=== PATIENT | female | born 1970 | race Caucasian/White ===

== ENCOUNTER 2017-05-19 18:34 | Emergency (ER) | payer MEDICARE, MEDICAID ==
[~2017-05-19] VITALS: Ht 157.5 cm; Wt 85.7 kg
[~2017-05-19 18:34] MED LIST: ACIPHEX 20 MG T20 MG PO; ALDOMET250 MG PO; ALPRAZOLAM; AMOXICILLIN 50500 M1 PO; BENTYL20 MG PO; CARAFATE 1 GM TA1 G1 PO; CARAFATE 1 GM TA1 GM PO; DURAGESIC1 EAC2; DYAZIDE 37.5-21 EACH PO; HYDROCHLOROTHIA25 M1 PO; IBUPROFEN 800800 M1 PO; LEVAQUIN 500 M500 M4 PO; LYRICA; METFORMIN HCL500 MG PO; METHYLDOPA; MS CONTIN15 MG PO; NEXIUM40 MG PO; PERCOCET 5-3251 EACH PO; PERCOGESIC; PHENERGAN 25 MG25 M1 PO; PHENERGAN25 M2 RC; PREDNISONE 10 M10 M1 PO; PRENATAL; PREVACID15 MG PO; PROMS25 WY RECTAL; PROTONIX40 MG PO; TOBRAMYCIN SULFA5 M1 OPHTHALMIC; TOPAMAX PO; TORADOL 10 MG T10 MG PO; ULTRAM 50MG TAB50 MG PO; VALTREX1000 MG PO; VENTOLIN HFA INH8 GM INH; XANAX 0.25 MG0.25 MG PO; ZANTAC 150MG T150 M1 PO; ZOFRAN 4 MG ORAL4 M1 DIS; ZOLOFT; ZOLOFT 50 MG TA50 M1
[2017-05-19] MEDS ORDERED: LEVOTHYROXINE100 MC1 (18:45)
[2017-05-19 19:18] LABS: INFLUENZA A ANTIGEN None Detected (None Detect); INFLUENZA B ANTIGEN None Detected (None Detect)
[2017-05-19] MEDS ORDERED: DOXYCYCLINE 10100 MG PO (19:24)
[2017-05-19] MEDS ORDERED: PREDNISONE 20 M20 MG PO (19:24)
[2017-05-19] MEDS ORDERED: TESSALON PERLE100 MG PO (19:24)
[2017-05-19] MEDS ORDERED: VENTOLIN HFA 1818 GM INH (19:24)
[2017-05-19 19:34] VITALS: BP 136/43
== END 2017-05-19 19:36 | disposition home or self-care (01) ==
LOC: M.ERS 18:34
PROVIDERS: Physician Assistant
DX: J06.9 Acute upper respiratory infection, unspecified (principal); K21.9 Gastro-esophageal reflux disease without esophagitis; I10 Essential (primary) hypertension; E11.9 Type 2 diabetes mellitus without complications; J44.9 Chronic obstructive pulmonary disease, unspecified; F17.210 Nicotine dependence, cigarettes, uncomplicated; F10.99 Alcohol use, unspecified with unspecified alcohol-induced disorder; Z88.8 Allergy status to other drugs, medicaments and biological substances; Z88.5 Allergy status to narcotic agent; Z98.890 Other specified postprocedural states; Z90.49 Acquired absence of other specified parts of digestive tract

== ENCOUNTER 2017-08-23 12:10 | Emergency (ER) | payer MEDICARE, MEDICAID ==
[~2017-08-23] VITALS: Ht 157.5 cm; Wt 86.2 kg
[~2017-08-23 12:10] MED LIST changes: +DOXYCYCLINE 10100 MG PO; +LEVOTHYROXINE100 MC1; +PREDNISONE 20 M20 MG PO; +TESSALON PERLE100 MG PO; +VENTOLIN HFA 1818 GM INH
[2017-08-23] MEDS ORDERED: PHENERGAN 25 MG25 M1 PO (12:25)
[2017-08-23] MEDS ORDERED: PROTONIX 20 MG20 M1 PO (12:25)
[2017-08-23] MEDS ORDERED: PROAIR HFA8.5 GM (12:25)
[2017-08-23] MEDS ORDERED: CARAFATE 1 GM TA1 G1 PO (12:26)
[2017-08-23 13:30] LABS: ABSOLUTE BASOPHILS 0.1 thou/uL (0.0-0.2); ABSOLUTE EOSINOPHILS 0.2 thou/uL (0.0-0.7); ABSOLUTE LYMPHOCYTES 2.6 thou/uL (0.8-5.3); ABSOLUTE NEUTROPHILS 6.3 thou/uL (1.6-8.1); BASOPHILS 0.6 %; EOSINOPHILS 2.3 %; HEMOGLOBIN 16.3 gm/dL (12.0-15.0); LYMPHOCYTES 25.2 %; MCH 30.9 pg (26.0-34.0); MCHC 34.6 g/dL (28.0-37.0); MCV 89.2 fL (80.0-100.0); MONOCYTES 9.9 %; NUCLEATED RBCS 0 /100WBC; PLATELET COUNT* 247 thou/uL (150-400); RBC 5.27 mil/uL (4.20-5.00); RDW-CV 14.1 % (10.5-14.5); WBC 10.1 thou/uL (4.0-11.0)
[2017-08-23 13:38] LABS: URINE BILIRUBIN NEGATIVE (Negative); URINE BLOOD TRACE (Negative); URINE CLARITY CLEAR; URINE COLOR YELLOW; URINE GLUCOSE-RANDOM NEGATIVE (Negative); URINE KETONES NEGATIVE (Negative); URINE LEUKOCYTES-REFLEX NEGATIVE (Negative); URINE NITRITE-REFLEX NEGATIVE (Negative); URINE PROTEIN NEGATIVE (Negative); URINE SPECIFIC GRAVITY 1.015 (1.005-1.030); URINE UROBILINOGEN 0.2 E.U./dl (0.2-1.0)
[2017-08-23 13:38] LABS: CALCIUM 8.8 mg/dL (8.5-10.1); CREATININE 0.9 mg/dL (0.6-1.3); POTASSIUM 3.8 mmol/L (3.5-5.1)
[2017-08-23 13:43] LABS: ALBUMIN 3.7 g/dL (3.4-5.0); TOTAL BILIRUBIN 0.3 mg/dL (<0.1-1.0); TOTAL PROTEIN 7.5 g/dL (6.4-8.2)
[2017-08-23] MEDS ORDERED: PROMS25 WY RECTAL (13:53)
[2017-08-23 16:27] VITALS: BP 174/89
--- NOTE | 2017-08-24 11:30 | EKG ---
[place] [address] ELECTROCARDIOGRAM REPORT Name: PATRICK RHODES Room: [facility]#: [id number] Admission: 08/23/17 Attend Phys: Discharge: 08/23/17 Date of : 66 Report #: [id number] THIS REPORT FOR: //name// [facility] ED Test Date: 2017-08-23 Test Time: 14:46:06 Pat Name: PATRICK RHODES Department: Room: Gender: F Injury Prevention Coordinator: Jose Maria CHANDLER : 1970 Requested By: Carolyn Carl Order Number: [id number] MD: James Fairchild Measurements Intervals [place] Rate: 76 P: 35 [place]: 145 QRS: 2 QRSD: 85 T: 0 QT: 412 QTc: 464 Interpretive Statements Sinus rhythm Borderline T abnormalities, inferior leads Compared to ECG 08/15/2014 12:35:04 T-wave abnormality now present Electronically Signed On 08-24-2017 11:30:35 CDT by James Fairchild [email or web address] <ELECTRONICALLY SIGNED> By: James Fairchild MD, [facility] 08/24/17 1130 1446 1446 James Fairchild MD, FAC /EPI
== END 2017-08-23 16:27 | disposition home or self-care (01) ==
LOC: M.ERS 12:10
PROVIDERS: Nurse Practitioner Family
DX: R10.11 Right upper quadrant pain (principal); E11.9 Type 2 diabetes mellitus without complications; K21.9 Gastro-esophageal reflux disease without esophagitis; Z90.49 Acquired absence of other specified parts of digestive tract; F17.210 Nicotine dependence, cigarettes, uncomplicated; Z88.5 Allergy status to narcotic agent; Z88.6 Allergy status to analgesic agent; Z88.8 Allergy status to other drugs, medicaments and biological substances; J44.9 Chronic obstructive pulmonary disease, unspecified

== ENCOUNTER 2017-10-11 11:46 | Inpatient (IN) | payer MEDICARE, MEDICAID ==
[~2017-10-11] VITALS: Ht 157.5 cm; Wt 87.5 kg
[~2017-10-11 11:46] MED LIST changes: +PROAIR HFA8.5 GM; +PROTONIX 20 MG20 M1 PO
[2017-10-11 12:22] LABS: ABSOLUTE BASOPHILS 0.1 thou/uL (0.0-0.2); ABSOLUTE EOSINOPHILS 0.1 thou/uL (0.0-0.7); ABSOLUTE LYMPHOCYTES 1.2 thou/uL (0.8-5.3); ABSOLUTE MONOCYTES 0.5 thou/uL (0.0-1.2); ABSOLUTE NEUTROPHILS 4.3 thou/uL (1.6-8.1); BASOPHILS 0.8 %; EOSINOPHILS 1.1 %; HEMATOCRIT 40.2 % (37.0-47.0); MCH 30.4 pg (26.0-34.0); MCHC 34.7 g/dL (28.0-37.0); MCV 87.6 fL (80.0-100.0); MPV 7.8 fl. (7.2-11.1); NUCLEATED RBCS 0 /100WBC; PLATELET COUNT* 226 thou/uL (150-400); POLYS 71.1 %; RBC 4.58 mil/uL (4.20-5.00); RDW-CV 13.9 % (10.5-14.5); WBC 6.1 thou/uL (4.0-11.0)
[2017-10-11 12:26] LABS: URINE BLOOD NEGATIVE (Negative); URINE CLARITY CLEAR; URINE COLOR YELLOW; URINE GLUCOSE-RANDOM NEGATIVE (Negative); URINE KETONES 1+ (Negative); URINE LEUKOCYTES-REFLEX NEGATIVE (Negative); URINE NITRITE-REFLEX NEGATIVE (Negative); URINE PROTEIN 1+ (Negative); URINE SPECIFIC GRAVITY 1.025 (1.005-1.030); URINE UROBILINOGEN 0.2 E.U./dl (0.2-1.0)
[2017-10-11 12:29] LABS: ICTOTEST (BILI CONFIRMATORY) Negative (Negative); URINE BILIRUBIN 1+ (Negative)
[2017-10-11 12:32] LABS: CALCIUM 8.4 mg/dL (8.5-10.1); CREATININE 0.8 mg/dL (0.6-1.3)
[2017-10-11 12:36] LABS: ALBUMIN 3.1 g/dL (3.4-5.0); TOTAL BILIRUBIN 0.4 mg/dL (<0.1-1.0); TOTAL PROTEIN 7.4 g/dL (6.4-8.2)
--- NOTE | 2017-10-11 15:18 | EKG ---
[place] [address] ELECTROCARDIOGRAM REPORT Name: PATRICK RHODES Room: [facility]#: [id number] Admission: 10/11/17 Attend Phys: Discharge: Date of : 66 Report #: [id number] THIS REPORT FOR: //name// [facility] ED Test Date: 2017-10-11 Test Time: 12:23:42 Pat Name: PATRICKADRIEN RHODES Department: Room: Gender: F Knot Tying Operator: : 1970 Requested By: Carolyn Carl Order Number: [id number] MD: Seun Quinones Measurements Intervals [place] Rate: 113 P: 38 [place]: 180 QRS: 9 QRSD: 79 T: 17 QT: 308 QTc: 423 Interpretive Statements Sinus tachycardia Probable left atrial enlargement Compared to ECG 08/23/2017 14:46:06 Sinus rhythm no longer present Electronically Signed On 10-11-2017 15:18:05 CDT by Seun Quinones [email or web address] <ELECTRONICALLY SIGNED> By: Seun Quinones MD, [facility] 10/11/17 1518 1223 1223 Seun Quinones MD, FACC /EPI
[2017-10-11 16:17] VITALS: BP 144/64
[2017-10-11 17:04] VITALS: BP 154/84
[2017-10-11] MEDS ORDERED: XANAX 0.25 MG0.25 MG PO (17:07)
[2017-10-11 20:20] VITALS: BP 111/62
[2017-10-12] VITALS: BP 157/93
[2017-10-12 04:23] VITALS: BP 117/74
[2017-10-12 04:49] LABS: HEMATOCRIT 37.7 % (37.0-47.0); HEMOGLOBIN 12.8 gm/dL (12.0-15.0); MCH 30.2 pg (26.0-34.0); MCHC 33.9 g/dL (28.0-37.0); MPV 8.4 fl. (7.2-11.1); RBC 4.23 mil/uL (4.20-5.00); RDW-CV 14.1 % (10.5-14.5); WBC 5.2 thou/uL (4.0-11.0)
[2017-10-12 05:05] LABS: ALBUMIN 2.8 g/dL (3.4-5.0); CALCIUM 8.1 mg/dL (8.5-10.1); CREATININE 0.7 mg/dL (0.6-1.3); MAGNESIUM 1.7 mg/dL (1.8-2.4); POTASSIUM 4.1 mmol/L (3.5-5.1); TOTAL BILIRUBIN 0.3 mg/dL (<0.1-1.0)
--- NOTE | 2017-10-12 06:19 | CON ---
[address] [address] CONSULTATION Name: PATRICK RHODES Room: [address] IN .R.#: [id number] Admission: 10/11/17 Attend Phys: Emely Armstrong MD Discharge: Date of : 66 Report #: [id number] THIS REPORT FOR: //name// CC: Seun Armstrong DATE OF SERVICE: 10/11/2017 INFECTIOUS DISEASE CONSULTATION ATTENDING PHYSICIAN: Dr. Armstrong. REASON FOR EVALUATION: FUO with associated nausea, vomiting and diarrhea with a painful maculopapular type eruption and it is widespread. HISTORY OF PRESENT ILLNESS: Chart reviewed, patient examined. This is a 47-year-old, with history of hypertension, bipolar disease, who had noted feeling lightheaded roughly 3 weeks ago. This was followed by fevers some of which have been as high as 104, but this has occurred basically daily for the last up to 2-3 weeks. More recently, has developed nausea, vomiting, diarrhea, had some poor p.o. intake and some weight loss. Subsequently, developed a macular eruption that started in the scalp, progressed and now involves the entirety of the torso as well as the limbs, and it is painful. On questioning, he denies any particular exposure history. It sounds that she is disabled, spends most of the time at home. There is no significant animal exposure, no recent travel. Does have a teenage son. Spouse has not been ill. No dietary indiscretion. Evaluation including laboratory thus far, CBC with a normal white count at 6.1, H and H 14.0 and 40.2 and platelets of 226. Differential was otherwise unremarkable. Urinalysis 1+ protein, negative nitrite, negative blood. Electrolytes: Sodium 137, potassium 4.0, chloride 100, bicarbonate is 26, AST is elevated at 81, ALT of 126. Lactic acid of 1.3. Monospot was negative. Chest x-ray, no acute process. CT abdomen and pelvis showed multiple small noncalcified pulmonary masses, question of some metastasis, no acute abdominal process, surgically absent gallbladder. Liver, a small low attenuation mass, 4 mm. Spleen was otherwise unremarkable. Small retroperitoneal lymph nodes. Of note, he did receive Augmentin as an outpatient seemingly without any significant benefit. She is not encephalopathic. Has some mild sore throat. No significant sinus issues. Does admit to some mild dyspnea, although not overtly distressed. ALLERGIES: LISTED TO OXYCODONE, PROPOXYPHENE, ESCITALOPRAM, MORPHINE, HYDROCODONE, ACETAMINOPHEN, FENTANYL, IRBESARTAN. MEDICATIONS: Currently include promethazine, metformin, levothyroxine, albuterol, promethazine, pantoprazole, sucralfate, Aldomet, [place] [address] CONSULTATION Name: PATRICK RHODES Room: [address] IN [facility].#: [id number] Admission: 10/11/17 Attend Phys: Emely Armstrong MD Discharge: Date of : 66 Report #: [id number] PAST MEDICAL HISTORY: Reflux, hypertension, diabetes mellitus type 2, COPD. SOCIAL HISTORY: Smoker. FAMILY HISTORY: Noncontributory. REVIEW OF SYSTEMS: As above. PHYSICAL EXAMINATION: GENERAL: She is actually alert, cooperative, in mild distress. She is sitting up. She is not overtly tachypneic. VITAL SIGNS: Temperature 101.5, pulse 125, respirations 18, blood pressure is not recorded. Weight 193 pounds. HEENT: She has several papular type eruptions on the head, neck, the limbs and the torso. They are not particularly hemorrhagic or vasculitic in appearance. They are tender. There are no bullous lesions. There are no subcutaneous masses or fluctuance. NECK: Supple. LUNGS: Somewhat diminished, otherwise generally clear breath sounds. HEART: Regular, tachycardic. I do not appreciate a murmur. ABDOMEN: Soft, mildly distended. There are no overt peritoneal signs. GENITOURINARY: Deferred. RECTAL: Deferred. LABORATORY DATA: Primarily as described above. LFTs remarkable for the AST of 81, ALT of 126, alkaline phosphatase of 183, albumin of 3.1, total protein of 7.4. Urine hCG was negative. Monospot was negative. ASSESSMENT: Fever of unknown origin with associated rash, mildly elevated liver function tests, and some perhaps new pulmonary nodules. Certainly, infection is a significant consideration. Blood cultures have been collected. We will do additional studies. At this point, it is reasonable to start empiric treatment with doxycycline, may need to consider additional studies such as skin biopsy. We may add additional testing pending those results. <ELECTRONICALLY SIGNED> By: Den Trejo MD 10/12/17 0619 1525 01Den Trejo MD /nt
[2017-10-12 10:38] VITALS: BP 133/65
[2017-10-12 16:17] LABS: APTT 29.2 Seconds (25.0-31.3)
--- NOTE | 2017-10-12 17:21 | 2DMMODE ---
[place] [address] 2 D/M-MODE ECHOCARDIOGRAM Name: PATRICK RHODES Room: [address] IN .R.#: [id number] Admission: 10/11/17 Attend Phys: Emely Armstrong, Discharge: Date of : 66 Date of Service: 10/12/17 1721 Report #: [id number] THIS REPORT FOR: //name// APPROVED REPORT Study performed: 10/12/2017 15:44:15 EXAM: Comprehensive 2D, Doppler, and color-flow Echocardiogram Patient Location: Bedside BSA: 1.88 HR: 103 bpm BP: 133/65 mmHg Other Information Study Quality: Fair Indications Pericardial Effusion Fever 2D Dimensions LVEF(%): 60.26 (>50%) IVSd: 9.62 (7-11mm) LVOT Diam: 22.66 (18-24mm) LVDd: 42.45 mm PWd: 9.52 (7-11mm) Ascending Ao: 27.55 (22-36mm) LVDs: 28.93 (25-40mm) Aortic Root: 25.01 mm Morris's LVEF: 60.26 % Volumes Left Atrial Volume (Systole) LA ESV Index: 14.80 mL/m2 Aortic Valve AoV Peak Pedro.: 1.38 m/s AO Peak Gr.: 7.63 mmHg LVOT Max P.42 mmHg AO Mean Gr.: 4.55 mmHg LVOT Mean P.18 mmHg LVOT Max V: 1.05 m/s AO V2 VTI: 19.94 cm LVOT Mean V: 0.68 m/s ISAC (VTI): 3.55 cm2 LVOT V1 VTI: 17.56 cm Mitral Valve E/A Ratio: 0.98 MV Decel. Time: 252.78 [place] [address] 2 D/M-MODE ECHOCARDIOGRAM Name: PATRICK RHODES Room: [address] IN .R.#: [id number] Admission: 10/11/17 Attend Phys: Emely Armstrong, Discharge: Date of : 66 Date of Service: 10/12/17 1721 Report #: [id number] MV E Max Pedro.: 0.64 m/s MV PHT: 73.31 ms MVA (PHT): 3.00 cm2 TDI E/Lateral E': 4.92 E/Medial E': 6.40 Medial E' Pedro.: 0.10 m/s Lateral E' Pedro.: 0.13 m/s Pulmonary Valve PV Peak Pedro.: 0.85 m/s PV Peak Gr.: 2.90 mmHg Tricuspid Valve RAP Estimate: 5.00 mmHg TR Peak Gr.: 21.12 mmHg RVSP: 26.12 mmHg PA Pressure: 26.12 mmHg Left Ventricle The left ventricle is normal size. There is normal LV segmental wall motion. There is normal left ventricular wall thickness. Left ventricular systolic function is normal. The left ventricular ejection fraction is within the normal range. LVEF is 60-65%. The left ventricular diastolic function is normal. Right Ventricle The right ventricle is normal size. The right ventricular systolic function is normal. Atria The left atrium size is normal. The right atrium size is normal. Aortic Valve The aortic valve is normal in structure. No aortic regurgitation is present. There is no aortic valvular stenosis. Mitral Valve The mitral valve is normal in structure. Trace mitral regurgitation. No evidence of mitral valve stenosis. Tricuspid Valve The tricuspid valve is normal in structure. Trace tricuspid regurgitation. estimated pa pressure 30 mm Hg Pulmonic Valve The pulmonary valve is normal in structure. [place] [address] 2 D/M-MODE ECHOCARDIOGRAM Name: PATRICK RHODES Room: [address]#: [id number] Admission: 10/11/17 Attend Phys: Emely Armstrong, Discharge: Date of : 66 Date of Service: 10/12/17 1721 Report #: [id number] valvular regurgitation. Great Vessels The aortic root is normal in size. IVC is normal in size and collapses with >50% inspiration Pericardium There is no pericardial effusion. <Conclusion> Left ventricular systolic function is normal. The left ventricular ejection fraction is within the normal range. <ELECTRONICALLY SIGNED> By: Seun Quinones MD, FACC 10/12/171720 20 20 Seun Quinones MD, FACC /INF
[2017-10-12 17:34] VITALS: BP 126/71
[2017-10-13 06:24] VITALS: BP 127/76
--- NOTE | 2017-10-13 07:16 | CON ---
[address] [address] CONSULTATION Name: PATRICK RHODES Room: [address] IN .R.#: [id number] Admission: 10/11/17 Attend Phys: Emely Armstrong MD Discharge: Date of : 66 Report #: [id number] THIS REPORT FOR: //name// CC: Seun Armstrong REQUESTING PHYSICIAN: Dr. Emely Armstrong. REASON FOR CONSULTATION: Pulmonary nodules. DISCUSSION: The patient is a pleasant 47-year-old woman, former smoker, quitting 2 years ago. She has no history of underlying lung disease. She was admitted after presenting to the Emergency Department yesterday with persistent high fevers, rash, nausea, vomiting and severe diarrhea. Was seen in the ED. No acute distress. Had generalized rash noted. Initial chest x-ray was unremarkable. With her GI symptoms, she did have a CT scan done of her abdomen and pelvis. No acute findings were noted in the abdomen. However, she did have multiple small noncalcified nodules noted. These were new compared to CT abdomen done in late July. At that time, she was evaluated in the Emergency Department for complaints of abdominal pain. She has had fevers overnight here. She has been on room air. Minimal cough, no sputum production. She has not felt short of breath. As noted, she is a former smoker. [place] Do have an indoor dog. Cats outside, but no farm animals. She has not had any travel. Not aware of any tick bites. She has not had any cuts or injuries. She notes she typically does not get out that she is "home body." Her smokes, but occasionally does smoke in the house. They have done no remodeling. Not been any big disruption of soil around their home. With her fevers, her physician did have her take a round of Augmentin. That did not help. Apparently, has also had other ED visits elsewhere besides [facility]. PAST MEDICAL HISTORY: Remarkable for chronic diarrhea, which she has had for years. History of hypertension, diabetes mellitus type 2, degenerative joint disease with 2 cervical fusions done in the past as well, sleep apnea for which she is on CPAP, prior cholecystectomy, appendectomy. She has had 4 C-sections. One of them was because of a uterine rupture during labor with an associated bladder injury. HOME MEDICATIONS: Have been hydrochlorothiazide, alprazolam, Carafate, Protonix, p.r.n. Phenergan, levothyroxine, p.r.n. ProAir inhaler, metformin [place] [address] CONSULTATION Name: PATRICK RHODES Room: [address] IN M.R.#: [id number] Admission: 10/11/17 Attend Phys: Emely Armstrong MD Discharge: Date of : 66 Report #: [id number] SOCIAL HISTORY: Former smoker. Is . Has 4 kids, only 1 left at home, is 10 years old. Is disabled. FAMILY HISTORY: Positive for COPD. REVIEW OF SYSTEMS: A 12-point ROS was done. Note positives above. She believes she may have lost some weight, though it is not clear how much. She does not believe that girth of her abdomen changed at all and still feels "full." She notes she has had chronic diarrhea for years. However, they are much worse over the last 3 weeks. Describes it as "water." She has been vomiting daily. Poor appetite. Has been nauseated. Had the skin eruptions noted. It has not been very pruritic but has had painful lesions. No upper airway congestion. Minimal cough, no sputum production. PHYSICAL EXAMINATION: GENERAL APPEARANCE: A woman who looks stated age. She is obese, resting in bed. No acute distress. She was beginning to get diaphoretic while I was there. HEENT: Head is normocephalic. Sclerae nonicteric. Mucous membranes look moist. NECK: No cervical or supraclavicular adenopathy is appreciated. HEART: Regular, though mildly tachycardic. No murmurs heard. LUNGS: Sounds are clear with good air exchange. No wheezing or crackles are heard. Excursion is equal. ABDOMEN: Obese but soft. Healed surgical scar, lower mid abdominal area. EXTREMITIES: Negative for edema. No guarding or rebound. She does have a generalized rash noted throughout. SKIN: Warm, now becoming diaphoretic. NEUROLOGIC: She is alert and oriented x 3. Moving all extremities. LABORATORY AND X-RAY FINDINGS: Films were reviewed. Chest x-ray is unremarkable. CT scan done of her abdomen and pelvis does show the pulmonary nodules noted. Again, these were not seen on the study done in late July. On the CT scan done of her chest, again nodular densities are noted throughout her lung han. The largest one was 12 x 16 mm in the left upper lobe. May have a small pericardial effusion. No pleural effusions are noted. Does not have any pathologic adenopathy noted in her chest. CT scan done of her head was negative for acute findings. No contrast was utilized. Blood cultures are pending. Fungal cultures have also been sent. Chemistry: BUN is 12, creatinine 0.7, potassium 4.1, AST on admission was 81, down to 53 on followup. Alkaline phosphatase 149, down from 183 yesterday. Albumin 2.8 with a total protein of 6.0. White blood cell count yesterday 6100, today it is 5200. Hemoglobin 12.8, hematocrit 37.7, platelets are normal. Differential was unremarkable. No eosinophilia is noted. Sed rate yesterday was 34. RPR is pending. [facility] test was negative. test was negative. T-Spot is pending. UA was positive for protein, ketones, [place] [address] CONSULTATION Name: PATRICK RHODES Room: [address] IN [facility].#: [id number] Admission: 10/11/17 Attend Phys: Emely Armstrong MD Discharge: Date of : 66 Report #: [id number] IMPRESSION: 1. Febrile illness with significant temperature elevations greater than 103 for the last 3 weeks. It is associated with nausea, vomiting and watery diarrhea. Subsequently, has developed a rash. It is not clear if the rash is related to the acute illness or the antibiotic (Augmentin) that she was on. Normal white count. This could be autoimmune on infectious process. We will think about tick bites, atypical fungal, etc. 2. Pulmonary nodules. Though the pattern would be worrisome for metastatic disease, the fact that she had no nodules noted on the lower lung han on a CT scan done less than 6 weeks ago suggested may be related to the more acute process that she has at this time. 3. Obstructive sleep apnea, compliant with her CPAP. 4. Diabetes mellitus type 2. RECOMMENDATIONS: 1. Await serologies. 2. None of the nodules look readily accessible for a biopsy. Yield from bronchoscopy would be low. Would recommend short-term followup with a CT scan. 3. Consider skin biopsy. 4. We will also obtain echocardiogram. Assess for pericardial effusion. <ELECTRONICALLY SIGNED> By: Denisse Weber MD 10/13/17 0716 1058 2131Denisse Weber MD /nt
[2017-10-13 08:30] VITALS: BP 120/52
[2017-10-13 16:00] VITALS: BP 129/77
[2017-10-13 23:06] VITALS: BP 149/65
[2017-10-14 04:04] LABS: HEMATOCRIT 38.7 % (37.0-47.0); HEMOGLOBIN 13.1 gm/dL (12.0-15.0); MCH 29.9 pg (26.0-34.0); MCHC 33.9 g/dL (28.0-37.0); MPV 8.2 fl. (7.2-11.1); RBC 4.4 mil/uL (4.20-5.00); RDW-CV 14.2 % (10.5-14.5); WBC 5.6 thou/uL (4.0-11.0)
[2017-10-14 04:19] LABS: ALBUMIN 2.9 g/dL (3.4-5.0); CALCIUM 8.7 mg/dL (8.5-10.1); CREATININE 0.7 mg/dL (0.6-1.3); MAGNESIUM 1.9 mg/dL (1.8-2.4); POTASSIUM 4.4 mmol/L (3.5-5.1); TOTAL BILIRUBIN 0.4 mg/dL (<0.1-1.0); TOTAL PROTEIN 6.4 g/dL (6.4-8.2)
[2017-10-14 07:55] VITALS: BP 129/59
[2017-10-14 15:59] VITALS: BP 112/62
[2017-10-14 20:00] VITALS: BP 107/55
[2017-10-15 09:10] LABS: ANA INTERPRETATION Negative (Negative)
[2017-10-15 09:12] VITALS: BP 110/57
[2017-10-15 12:06] LABS: HIV-1/HIV-2 ANTIBODY Non Reactive (Non Reactive)
[2017-10-15 16:00] VITALS: BP 130/84
[2017-10-15 19:11] LABS: ANA INTERPRETATION Negative (())
[2017-10-15 20:00] VITALS: BP 125/62
[2017-10-16 04:16] LABS: HEMATOCRIT 39.4 % (37.0-47.0); HEMOGLOBIN 13.3 gm/dL (12.0-15.0); MCH 29.8 pg (26.0-34.0); MCHC 33.7 g/dL (28.0-37.0); MCV 88.4 fL (80.0-100.0); MPV 8.4 fl. (7.2-11.1); RBC 4.46 mil/uL (4.20-5.00); RDW-CV 14.5 % (10.5-14.5); WBC 5.2 thou/uL (4.0-11.0)
[2017-10-16 04:45] LABS: CREATININE 0.8 mg/dL (0.6-1.3); MAGNESIUM 1.8 mg/dL (1.8-2.4); POTASSIUM 3.9 mmol/L (3.5-5.1); TOTAL BILIRUBIN 0.3 mg/dL (<0.1-1.0); TOTAL PROTEIN 7.2 g/dL (6.4-8.2)
[2017-10-16 07:50] VITALS: BP 117/74
[2017-10-16] MEDS ORDERED: GLUCOPHAGE850 MG PO (08:30)
[2017-10-16 11:20] VITALS: BP 117/74
[2017-10-16] MEDS ORDERED: BACTRIM DS TAB1 EACH PO (11:31)
[2017-10-16] MEDS ORDERED: DOXYCYCLINE 10100 MG PO (11:32)
--- NOTE | 2017-10-23 10:42 | CON ---
[address] [address] CONSULTATION Name: PATRICK RHODES Room: [address] IN ..#: [id number] Admission: 10/11/17 Attend Phys: Emely Armstrong MD Discharge: 10/16/17 Date of : 66 Report #: [id number] THIS REPORT FOR: //name// CC: Seun Armstrong DATE OF SERVICE: 10/12/2017 REASON FOR CONSULTATION: Lung masses. SUBJECTIVE: A 47-year-old female who was evaluated because of 3 weeks of fevers, night sweats and maculopapular eruption, which was widespread. The patient lost 10 pounds over the last month. Her fever has been running as high as 104. She had a CT scan of the abdomen, which showed multiple small noncalcified lung masses worrisome of metastases. They are new compared to 08/23/2017. CT chest confirmed those multiple soft tissue rounded masses over the bilateral lungs each one of them up to 12 x 16 mm. The patient was started on antibiotics including Zosyn and doxycycline. The patient started feeling a little bit better. She is up-to-date with her mammogram and colonoscopy. REVIEW OF SYSTEMS: All systems reviewed. It was negative except above. PAST MEDICAL HISTORY: GERD, hypertension and diabetes type 2. PAST SURGICAL HISTORY: Cholecystectomy, appendectomy and C fusion x 2. ALLERGIES: SHE IS ALLERGIC TO OXYCODONE, ACETAMINOPHEN, FENTANYL, HYDROCODONE AND MORPHINE. MEDICATIONS: Per admission list. FAMILY HISTORY: Noncontributory. SOCIAL HISTORY: She smoked less than one pack for more than 12 years. No drug or alcohol abuse. PHYSICAL EXAMINATION: VITAL SIGNS: Today temperature 37.3, pulse is 103, respirations 22, blood pressure is 133/65 and SpO2 is 95% on room air. GENERAL: The patient was lying in bed. She was not in acute distress. LUNGS: Decreased breathing sounds bilaterally. HEART: Tachy, but regular. S1, S2 within normal limits. ABDOMEN: Soft, nontender, nondistended and bowel sounds positive. EXTREMITIES: +1 edema bilaterally. LABORATORY DATA: WBC 5.2, hemoglobin 12.8 and platelets 234. [place] 34[place] [address] CONSULTATION Name: PATRICK RHODES Room: [address]#: [id number] Admission: 10/11/17 Attend Phys: Emely Armstrong MD Discharge: 10/16/17 Date of : 66 Report #: [id number] Creatinine 0.7, calcium is 8.1, magnesium 1.7, AST 53, ALT of 9 and alkaline phosphatase is 149. CRP 62.8. ASSESSMENT AND PLAN: A 47-year-old female who has been a former smoker presented with acute febrile illness associated with soft tissue masses in her bilateral lungs. Her clinical picture is more consistent with an infectious process. I agree with antibiotics at this point. We will monitor the patient clinically. If the patient does not respond, I do recommend to obtain a biopsy to confirm metastases versus fungal infection. However, I would like to monitor the patient for the next 2-3 days before proceeding with a CT-guided biopsy. Definitely, the patient will need a followup CT scan on a short-term over the next 4-6 weeks. We would like to arrange a followup as an outpatient in Hematology and Oncology Clinic at [facility] after discharge. <ELECTRONICALLY SIGNED> By: Marley Tyler MD 10/23/17 1042 1432 0103Marley Tyler MD /nt
--- NOTE | 2017-11-02 17:08 | PATH ---
[address] [address] PATHOLOGY RPT PROCEDURE Name: PATRICK RHODES Room: [address] IN M.R.#: [id number] Admission: 10/11/17 Date of : 66 Discharge: 10/16/17 Report #: [id number] Path Case #: [id number] [facility] Accession Number: [id number] . 01 Material submitted: . RIGHT LATERAL THIGH . 01 Clinical history: . Rash . 02 Diagnosis: Skin, right lateral thigh: - Superficial and mid dermal perivascular inflammation (see comment). LBQ/10/17/2017 . 02 Comment: The case was evaluated with additional deeper levels as well as with a PAS stain for fungus, performed with an appropriate positive control, which is negative. . Due to the nature of the biopsy, only the superficial and mid dermis is available for review. The histologic changes are those of a superficial perivascular lymphohistiocytic inflammatory infiltrate with inflammation also seen around hair follicles. A specific diagnosis cannot be provided other than that of a chronic eczematous dermatitis. Viral exanthems can also have just a lymphocytic dermal inflammatory infiltrate. If clinically indicated, a punch biopsy of a more recent lesion might provide additional histologic findings. Please correlate clinically. . Additional clinical history obtained by Dr. Tran is that this is a macular eruption that started either on the leg/scalp and spread to the torso. The patient describes it as painful. No clinical impression is provided. (SAS:db; 10/17/2017) . Special stain: PAS fungus: Negative . 02 Electronically signed: . Lily Chou MD, Pathologist NPI- [id number] . 01 Gross description: . The specimen is received in formalin, labeled "Patrick Rhodes, right lateral thigh". Received is an ellipse of pale briceño, grossly unremarkable skin measuring 1.4 x 0.6 x 0.2 cm in greatest dimensions. The surgical margin is inked. The specimen is longitudinally bisected and entirely submitted in cassette A1. (CAA; 10/15/2017) [place] [address] PATHOLOGY RPT PROCEDURE Name: PATRICK RHODES Megan Room: [address] DIS IN M.R.#: [id number] Admission: 10/11/17 Date of : 66 Discharge: 10/16/17 Report #: [id number] Path Case #: [id number] QAC/QAC . 02 Microscopic: . Multiple levels and additionally requested deeper levels of a bisected skin biopsy shows mild hyperkeratosis. The epidermis is irregularly acanthotic and minimally spongiotic. An occasional dyskeratotic keratinocyte is present. There is a superficial and mid dermal perivascular and perifollicular lymphohistiocytic inflammatory cell infiltrate. A PAS stain for fungus was performed, along with an appropriate positive control, and is negative. . 02 Pathologist provided ICD-10: L08.9 . 02 CPT . 769622, [id number] Performed at: 01 [facility] [address] [place] [address] [address], [place] [id number] MD Remy Benítez MD Phone: [phone] Performed at: 02 [facility] [address] [id number] MD Lily Chou MD Phone: [phone]
== END 2017-10-16 11:50 | disposition home or self-care (01) | DRG 868 ==
LOC: M.ERS 11:46 → M.3W 15:29 → M.TBA-ER 15:29 → M.3W 16:38
PROVIDERS: Nurse Practitioner Family; Specialist; Surgery; ADMIT Internal Medicine
PROC: 0HBKXZX Excision of Right Lower Leg Skin, External Approach, Diagnostic (ICD-10-PCS; principal; 2017-10-12)
DX: B49 Unspecified mycosis (principal); R65.10 Systemic inflammatory response syndrome (SIRS) of non-infectious origin without acute organ dysfunction; E44.1 Mild protein-calorie malnutrition; K21.9 Gastro-esophageal reflux disease without esophagitis; R21 Rash and other nonspecific skin eruption; R79.89 Other specified abnormal findings of blood chemistry; F31.9 Bipolar disorder, unspecified; J44.9 Chronic obstructive pulmonary disease, unspecified; M47.9 Spondylosis, unspecified; R91.1 Solitary pulmonary nodule; G47.33 Obstructive sleep apnea (adult) (pediatric); R16.0 Hepatomegaly, not elsewhere classified; E11.9 Type 2 diabetes mellitus without complications; I10 Essential (primary) hypertension; Z88.6 Allergy status to analgesic agent; Z88.8 Allergy status to other drugs, medicaments and biological substances; I25.2 Old myocardial infarction; Z90.49 Acquired absence of other specified parts of digestive tract; Z98.890 Other specified postprocedural states; Z87.891 Personal history of nicotine dependence; Z82.5 Family history of asthma and other chronic lower respiratory diseases; Z79.2 Long term (current) use of antibiotics; Z79.899 Other long term (current) drug therapy; Z68.35 Body mass index [BMI] 35.0-35.9, adult

== ENCOUNTER → 2018-02-12 | Outpatient (CLI) | payer MEDICARE, MEDICAID ==
[~2018-02-12] MED LIST changes: +BACTRIM DS TAB1 EACH PO; +BENTYL 20 MG TA20 M1 PO; +COZAAR 50 MG TA50 M1 PO; +GLUCOPHAGE850 MG PO; +SYNTHROID25 MC1 PO; +TRAMADOL 50 MG50 MG PO; +ZOFRAN ODT4 MG PO
[2018-02-12 14:26] LABS: ABSOLUTE BASOPHILS 0.1 thou/uL (0.0-0.2); ABSOLUTE EOSINOPHILS 0.2 thou/uL (0.0-0.7); ABSOLUTE LYMPHOCYTES 2.4 thou/uL (0.8-5.3); ABSOLUTE MONOCYTES 0.8 thou/uL (0.0-1.2); BASOPHILS 0.7 %; EOSINOPHILS 1.9 %; HEMATOCRIT 44.7 % (37.0-47.0); HEMOGLOBIN 15.3 gm/dL (12.0-15.0); LYMPHOCYTES 25.1 %; MCH 30.1 pg (26.0-34.0); MCHC 34.1 g/dL (28.0-37.0); MCV 88.2 fL (80.0-100.0); MONOCYTES 8.3 %; MPV 7.9 fl. (7.2-11.1); NUCLEATED RBCS 0 /100WBC; PLATELET COUNT* 242 thou/uL (150-400); RBC 5.07 mil/uL (4.20-5.00); RDW-CV 14.5 % (10.5-14.5); WBC 9.4 thou/uL (4.0-11.0)
[2018-02-12 14:40] LABS: CALCIUM 9.1 mg/dL (8.5-10.1); POTASSIUM 3.9 mmol/L (3.5-5.1)
[2018-02-12 14:45] LABS: ALBUMIN 3.7 g/dL (3.4-5.0); TOTAL BILIRUBIN 0.2 mg/dL (<0.1-1.0); TOTAL PROTEIN 7.7 g/dL (6.4-8.2)
[2018-02-12 15:27] LABS: ESR (SEDRATE) 0 mm/hr (0-30)
== END ==
LOC: M.LAB 14:00 → M.CT 15:30
PROVIDERS: Internal Medicine
DX: N28.89 Other specified disorders of kidney and ureter (principal); R91.8 Other nonspecific abnormal finding of lung field; N83.202 Unspecified ovarian cyst, left side; R10.84 Generalized abdominal pain; J44.9 Chronic obstructive pulmonary disease, unspecified; Z68.34 Body mass index [BMI] 34.0-34.9, adult

== ENCOUNTER 2018-02-15 12:06 | Emergency (ER) | payer MEDICARE, MEDICAID ==
[~2018-02-15] VITALS: Ht 162.6 cm; Wt 85.7 kg
[~2018-02-15 12:06] MED LIST changes: -BENTYL 20 MG TA20 M1 PO; -COZAAR 50 MG TA50 M1 PO; -SYNTHROID25 MC1 PO; -TRAMADOL 50 MG50 MG PO; -ZOFRAN ODT4 MG PO
[2018-02-15] MEDS ORDERED: METFORMIN HCL500 MG PO (12:27)
[2018-02-15] MEDS ORDERED: COZAAR 50 MG TA50 M1 PO (12:28)
[2018-02-15] MEDS ORDERED: SYNTHROID25 MC1 PO (12:28)
[2018-02-15 12:44] LABS: ABSOLUTE BASOPHILS 0.1 thou/uL (0.0-0.2); ABSOLUTE EOSINOPHILS 0.2 thou/uL (0.0-0.7); ABSOLUTE LYMPHOCYTES 2.8 thou/uL (0.8-5.3); ABSOLUTE MONOCYTES 0.9 thou/uL (0.0-1.2); ABSOLUTE NEUTROPHILS 5.8 thou/uL (1.6-8.1); BASOPHILS 0.5 %; EOSINOPHILS 2.2 %; HEMATOCRIT 44.7 % (37.0-47.0); HEMOGLOBIN 15.6 gm/dL (12.0-15.0); MCH 30.6 pg (26.0-34.0); MCHC 34.8 g/dL (28.0-37.0); MCV 87.8 fL (80.0-100.0); MONOCYTES 9.4 %; MPV 8.1 fl. (7.2-11.1); NUCLEATED RBCS 0 /100WBC; PLATELET COUNT* 249 thou/uL (150-400); POLYS 58.9 %; RBC 5.09 mil/uL (4.20-5.00); RDW-CV 14.9 % (10.5-14.5); WBC 9.8 thou/uL (4.0-11.0)
[2018-02-15 12:52] LABS: ANION GAP 5 mmol/L (7-16); BUN 13 mg/dL (7-18); CALCIUM 9.4 mg/dL (8.5-10.1); CHLORIDE 103 mmol/L (98-107); CO2 30 mmol/L (21-32); CREATININE 0.9 mg/dL (0.6-1.3); GLUCOSE 134 mg/dL (70-99); POTASSIUM 3.5 mmol/L (3.5-5.1); SODIUM 138 mmol/L (136-145)
[2018-02-15 12:59] LABS: ALBUMIN 3.6 g/dL (3.4-5.0); ALKALINE PHOSPHATASE 83 U/L (46-116); LIPASE 253 U/L (73-393); SGOT 15 U/L (15-37); SGPT 29 U/L (30-65); TOTAL BILIRUBIN 0.2 mg/dL (<0.1-1.0); TOTAL PROTEIN 7.7 g/dL (6.4-8.2); TROPONIN-I LEVEL <0.06 ng/mL (<0.06)
[2018-02-15 14:58] LABS: URINE BILIRUBIN NEGATIVE (Negative); URINE BLOOD NEGATIVE (Negative); URINE CLARITY CLEAR; URINE COLOR YELLOW; URINE GLUCOSE-RANDOM NEGATIVE (Negative); URINE KETONES NEGATIVE (Negative); URINE LEUKOCYTES-REFLEX NEGATIVE (Negative); URINE NITRITE-REFLEX NEGATIVE (Negative); URINE PROTEIN NEGATIVE (Negative); URINE SPECIFIC GRAVITY <= 1.005 (1.005-1.030); URINE UROBILINOGEN 0.2 E.U./dl (0.2-1.0)
[2018-02-15] MEDS ORDERED: BENTYL 20 MG TA20 M1 PO (15:15)
[2018-02-15] MEDS ORDERED: TRAMADOL 50 MG50 MG PO (15:15)
[2018-02-15] MEDS ORDERED: ZOFRAN ODT4 MG PO (15:15)
[2018-02-15 15:30] LABS: AMP/METHAMP Negative (Negative); BARBITURATES Negative (Negative); BENZODIAZEPINES Negative (Negative); COCAINE Negative (Negative); METHADONE Negative (Negative); OPIATES Negative (Negative); PCP Negative (Negative); THC POSITIVE (Negative)
[2018-02-15 15:34] VITALS: BP 174/81
--- NOTE | 2018-02-15 18:13 | EKG ---
[place] [address] ELECTROCARDIOGRAM REPORT Name: PATRICK RHODES Room: [facility]#: [id number] Admission: 02/15/18 Attend Phys: Discharge: 02/15/18 Date of : 66 Report #: [id number] THIS REPORT FOR: //name// [facility] ED Test Date: 2018-02-15 Test Time: 12:41:18 Pat Name: PATRICK RHODES Department: Room: Gender: F Staff Accountant: Jose Maria ROMAN : 1970 Requested By: Jennie Law Order Number: [id number] MD: Seun Quinones Measurements Intervals [place] Rate: 85 P: 44 NE: 141 QRS: 16 QRSD: 83 T: 26 QT: 370 QTc: 440 Interpretive Statements Sinus rhythm Compared to ECG 10/11/2017 12:23:42 Sinus tachycardia no longer present Electronically Signed On 02-15-2018 18:13:13 CDT by Seun Quinones [email or web address] <ELECTRONICALLY SIGNED> By: Seun Quinones MD, [facility] 02/15/18 1813 1241 1241 Seun Quinones MD, FACC /EPI
== END 2018-02-15 15:35 | disposition home or self-care (01) ==
LOC: M.ERS 12:06
PROVIDERS: Physician Assistant
DX: R10.84 Generalized abdominal pain (principal); R50.9 Fever, unspecified; K21.9 Gastro-esophageal reflux disease without esophagitis; I10 Essential (primary) hypertension; E11.9 Type 2 diabetes mellitus without complications; Z98.890 Other specified postprocedural states; Z90.49 Acquired absence of other specified parts of digestive tract; F17.210 Nicotine dependence, cigarettes, uncomplicated; Z88.1 Allergy status to other antibiotic agents; Z88.5 Allergy status to narcotic agent; Z88.8 Allergy status to other drugs, medicaments and biological substances

== ENCOUNTER 2019-01-14 09:29 | Emergency (ER) | payer MEDICARE, MEDICAID ==
[~2019-01-14] VITALS: Ht 167.6 cm; Wt 88.5 kg
[~2019-01-14 09:29] MED LIST changes: +BENTYL 20 MG TA20 M1 PO; +COZAAR 50 MG TA50 M1 PO; +SYNTHROID25 MC1 PO; +TRAMADOL 50 MG50 MG PO; +ZOFRAN ODT4 MG PO
[2019-01-14 10:52] VITALS: BP 166/78
== END 2019-01-14 10:35 | disposition home or self-care (01) ==
LOC: M.ERS 09:29
DX: S93.491A Sprain of other ligament of right ankle, initial encounter (principal); S80.212A Abrasion, left knee, initial encounter; I10 Essential (primary) hypertension; E11.9 Type 2 diabetes mellitus without complications; K21.9 Gastro-esophageal reflux disease without esophagitis; F17.210 Nicotine dependence, cigarettes, uncomplicated; Z88.6 Allergy status to analgesic agent; Z88.5 Allergy status to narcotic agent; Z88.8 Allergy status to other drugs, medicaments and biological substances; Z90.49 Acquired absence of other specified parts of digestive tract; Z98.890 Other specified postprocedural states; W10.8XXA Fall (on) (from) other stairs and steps, initial encounter; Y93.89 Activity, other specified; Y92.89 Other specified places as the place of occurrence of the external cause; Y99.8 Other external cause status

== ENCOUNTER → 2019-08-27 | Outpatient (CLI) | payer MEDICARE, MEDICAID ==
[2019-08-27 11:34] LABS: ABSOLUTE BASOPHILS 0.1 thou/uL (0.0-0.2); ABSOLUTE EOSINOPHILS 0.2 thou/uL (0.0-0.7); ABSOLUTE LYMPHOCYTES 2.3 thou/uL (0.8-5.3); ABSOLUTE MONOCYTES 0.7 thou/uL (0.0-1.2); BASOPHILS 1.7 %; HEMATOCRIT 43.6 % (37.0-47.0); HEMOGLOBIN 15.4 gm/dL (12.0-15.0); LYMPHOCYTES 27.6 %; MCH 32.1 pg (26.0-34.0); MCHC 35.3 g/dL (28.0-37.0); MCV 90.8 fL (80.0-100.0); MONOCYTES 8.1 %; MPV 9.2 fl. (7.2-11.1); NUCLEATED RBCS 0 /100WBC; POLYS 60.6 %; RDW-CV 14.4 % (10.5-14.5); WBC 8.2 thou/uL (4.0-11.0)
[2019-08-27 11:36] LABS: URINE BILIRUBIN NEGATIVE (Negative); URINE BLOOD NEGATIVE (Negative); URINE CLARITY CLEAR; URINE COLOR YELLOW; URINE GLUCOSE-RANDOM NEGATIVE (Negative); URINE KETONES NEGATIVE (Negative); URINE LEUKOCYTES-REFLEX NEGATIVE (Negative); URINE NITRITE-REFLEX NEGATIVE (Negative); URINE PROTEIN NEGATIVE (Negative); URINE UROBILINOGEN 0.2 E.U./dl (0.2-1.0)
[2019-08-27 11:58] LABS: ALBUMIN 3.9 g/dL (3.4-5.0); CALCIUM 8.6 mg/dL (8.5-10.1); CREATININE 0.8 mg/dL (0.6-1.3); DIRECT BILIRUBIN 0.1 mg/dL (<0.1-0.3); POTASSIUM 4.3 mmol/L (3.5-5.1); TOTAL BILIRUBIN 0.3 mg/dL (<0.1-1.0); TOTAL PROTEIN 7.3 g/dL (6.4-8.2)
[2019-08-27 12:13] LABS: PLATELET ESTIMATE ADEQUATE
[2019-08-27 12:14] LABS: PLATELET COUNT* 152 thou/uL (150-400)
== END ==
LOC: M.CT 11:00
PROVIDERS: Internal Medicine
DX: K76.0 Fatty (change of) liver, not elsewhere classified (principal); N83.202 Unspecified ovarian cyst, left side; E11.9 Type 2 diabetes mellitus without complications; J44.9 Chronic obstructive pulmonary disease, unspecified; N28.89 Other specified disorders of kidney and ureter

== ENCOUNTER 2021-01-17 12:18 | Emergency (ER) | payer MEDICARE, MEDICAID ==
[~2021-01-17] VITALS: Ht 157.5 cm; Wt 85.7 kg
[2021-01-17 12:26] VITALS: BP 185/88
[2021-01-17] MEDS ORDERED: CREON DR 3,0001 EACH PO (12:29)
[2021-01-17] MEDS ORDERED: INSULIN (12:30)
[2021-01-17] MEDS ORDERED: AMITIZA8 MCG PO (12:30)
[2021-01-17 13:35] LABS: URINE BILIRUBIN NEGATIVE (Negative); URINE BLOOD NEGATIVE (Negative); URINE CLARITY CLEAR; URINE COLOR YELLOW; URINE GLUCOSE-RANDOM NEGATIVE (Negative); URINE KETONES NEGATIVE (Negative); URINE LEUKOCYTES-REFLEX NEGATIVE (Negative); URINE NITRITE-REFLEX NEGATIVE (Negative); URINE PROTEIN NEGATIVE (Negative); URINE SPECIFIC GRAVITY <= 1.005 (1.005-1.030); URINE UROBILINOGEN 0.2 E.U./dl (0.2-1.0)
== END 2021-01-17 15:43 | disposition left against medical advice (07) ==
LOC: M.ERS 12:18
PROVIDERS: Nurse Practitioner Family
DX: R10.9 Unspecified abdominal pain (principal); K21.9 Gastro-esophageal reflux disease without esophagitis; I10 Essential (primary) hypertension; E11.9 Type 2 diabetes mellitus without complications; F17.210 Nicotine dependence, cigarettes, uncomplicated; Z53.21 Procedure and treatment not carried out due to patient leaving prior to being seen by health care provider; Z90.49 Acquired absence of other specified parts of digestive tract; Z98.890 Other specified postprocedural states; Z88.6 Allergy status to analgesic agent; Z88.5 Allergy status to narcotic agent; Z88.8 Allergy status to other drugs, medicaments and biological substances